=== PATIENT | female | born 1985 | race Caucasian/White ===

== ENCOUNTER 2018-02-05 06:23 | Inpatient (IN) | payer OTHER ==
[2018-02-05] MEDS ORDERED: ELECTROLYTE-148 SOLN 500 ML IV ONE (07:19)
[2018-02-05] MEDS ORDERED: CITRIC ACID/SODIUM CITRATE 30 ML UNIT-DOSE CUP PO ONE (07:19)
[2018-02-05 07:28] VITALS: BMI 37.2
[2018-02-05] MEDS ORDERED: ELECTROLYTE-148 SOLN 1,000 ML IV SCH (07:30)
--- NOTE | 2018-02-05 08:15 | HP ---
Past Medical History - Primary Care Physician PCP:: Louise King - Admission Chief Complaint: 32 yrs , 39.1 weeks, previous c/s x3 , requests for repeat c/s & BTL History of Present Illness: PNC at [address] [place] [address] 07/18/17 : A POS, Hbsag neg, Rpr nr, Rubella pos, Gbs neg, Rpr nr, Hiv neg , 1 hr Gtt normal -128, gc/ct neg , Quantiferon : indetermine ( 10/24/17) NT screen risk for trisomy -21 (1:548), AFP & Materna T21 neg Growth sono were normal last sono 234.6 weeks asael 16.0, efw 46%tile 5'0", BPP8/, fundal placenta Treated for urine c/s > 100,000 growth with macrobid 06/2017 Tdap & flu vaccine taken in 11/26/17 History Source: Patient - Past Medical History SATELLITE INSTALLER: No: CVA, Migraine, Seizure Cardiovascular: No: HTN Pulmonary: No: Asthma Gastrointestinal: Yes: Hemorrhoids Renal/: Yes: UTI ...: 4 ...Para: 3 ...Term: 3 ...: 0 ...Spon : 0 ...Induced : 0 ...Multiple Gestation: 0 ...LMP: 05/08/17 ... Weeks Gestation by Dates: 40.0 ...EDC by Dates: 02/05/18 ...EDC by Sono: 02/11/18 (39.1 weeks ) Additional OB History: G1 07/12/2002 primary c/setion 6'8" [place]. G2 2011 repeat c/s 7'.0" [facility]. G3 08/16/2016 repeat c/s 6'15" [facility] Psych: No: Addictions, Anxiety, Bipolar, Depression Musculoskeletal: No: Bursitis Rheumatology: No: Fibromyalgia ENT: No: Allergic Rhinitis Endocrine: No: Duncan's Disease Dermatology: No: Basal Cell, Cellulitis, Eczema, Melanoma - Past Surgical History Past Surgical History: Yes: (06/2002, 04/2012, 07/2016) Hx Myomectomy: No Hx Transabdominal Cerclage: No - Smoking History Smoking history: Never smoked Have you smoked in the past 12 months: No Aproximately how many cigarettes per day: 0 - Alcohol/Substance Use Hx Alcohol Use: No History of Substance Use: reports: None Home Medications - Allergies Allergies/Adverse Reactions: Allergies Allergy/AdvReac Type Severity Reaction Status Date / Time No Known Allergies Allergy Verified 02/03/18 11:45 - Home Medications Home Medications: Ambulatory Orders Vit,Calc76/Iron/Folic [Pnv 29-1 Tablet] 1 each PO DAILY 08/21/16 Physical Exam - Maternity Vital Signs: Vital Signs Temperature 98.2 F 02/05/18 06:23 Pulse Rate 89 02/05/18 06:23 Respiratory Rate 18 02/05/18 06:23 Blood Pressure 112/69 02/05/18 06:23 O2 Sat by Pulse Oximetry (%) Selected Entries 02/05/18 06:23 Weight 197 lb Constitutional: Yes: Well Nourished, Obese Eyes: Yes: WNL HENT: Yes: WNL Neck: Yes: WNL Cardiovascular: Yes: WNL Lungs: Clear to auscultation Breast(s): Yes: WNL - Abdominal Exam/OB Fundal Height: 40 Number of Fetuses: Single Presentation: Vertex Contractions: No Monitor Mode: External Heart Rate (range): 140 Heart Rate Location: Midline Category: I Accelerations: Uniform Decelerations: None - Vaginal Exam/OB Vaginal Bleediing: No Speculum Exam: No Dilatation (cm): close Effacement (%): unefface Amniotic Membrane Status: Intact Presentation: Vertex/Position Station: -3 - Physical Exam Musculoskeletal: Yes: WNL Extremities: Yes: WNL. No: Calf Tenderness Edema: Yes Edema: LLE: 1+, RLE: 1+ Integumentary: Yes: Incision (suprapubic midline & pfannensteil scar) Deep Tendon Reflex Grade: Normal +2 ...Motor Strength: WNL Psychiatric: Yes: WNL, Alert, Oriented - Labs Lab Results: Laboratory Tests 01/29/16 02/03/18 02/03/18 01:30 10:48 10:48 WBC 8.9 RBC 4.12 Hgb 12.9 D Hct 37.7 D RDW 14.2 Neutrophils % 77.3 Lymphocytes % 15.6 Monocytes % 6.3 Eosinophils % 0.4 Basophils % 0.4 PT with INR INR Sodium Potassium Chloride Carbon Dioxide BUN Creatinine Calcium Total Bilirubin AST ALT Total Protein Albumin Urine Glucose (UA) Negative Urine Ketones Trace H Urine Nitrite Negative Ur Leukocyte Esterase Negative Urine RBC 6 Urine WBC 22 Ur Epithelial Cells Many 02/03/18 02/03/18 10:48 10:48 WBC RBC Hgb Hct RDW Neutrophils % Lymphocytes % Monocytes % Eosinophils % Basophils % PT with INR 10.50 INR 0.93 Sodium 139 Potassium 3.7 Chloride 106 Carbon Dioxide 21 BUN 8 Creatinine 0.3 L Calcium 8.1 L Total Bilirubin 0.4 AST 24 ALT 40 Total Protein 6.9 Albumin 2.9 L Urine Glucose (UA) Urine Ketones Urine Nitrite Ur Leukocyte Esterase Urine RBC Urine WBC Ur Epithelial Cells Hemorrhage Risk Assessment - Risk Factors Medium Risk Factors: Yes: Prior , uterine surgery,or multiple laparotomies Risk Score: 1 Risk Level: Medium Risk Problem List - Problems (1) 39 weeks gestation of Code(s): Z3A.39 - 39 WEEKS GESTATION OF (2) Previous section Code(s): Z98.891 - HISTORY OF UTERINE SCAR FROM PREVIOUS SURGERY (3) Multiparity Code(s): Z64.1 - PROBLEMS RELATED TO MULTIPARITY (4) Obesity (BMI 35.0-39.9 without comorbidity) Code(s): E66.9 - OBESITY, UNSPECIFIED Assessment/Plan 32 yrs , previous c/sx3, obesity, gbs neg , for repeat c/s & BTL
[2018-02-05] MEDS ORDERED: morphine SULFATE/Preservative Free 0.5 MG/ML (1cc Syringe) ONE (08:23)
[2018-02-05] MEDS ORDERED: PHENYLEPHRINE HCL 10 MG/1 ML SINGLE DOSE VIAL ONE (08:23)
[2018-02-05] MEDS ORDERED: EPINEPHrine 1:10,000 (P-F SYR) 1 MG/10 ML DISP.SYRIN ONE (08:23)
[2018-02-05] MEDS ORDERED: ONDANSETRON 4 MG/2 ML VIAL IVPUSH PRN (08:47)
[2018-02-05] MEDS ORDERED: OXYTOCIN 20 UNITS in 0.9% NS 20 UNIT/1,000 ML INFUS.BAG IV ONE ×2 (09:25→10:57)
[2018-02-05] MEDS ORDERED: SENNOSIDES/DOCUSATE COMBO (SENNA PLUS) TABLET (UD) PO PRN (09:48)
[2018-02-05] MEDS ORDERED: IBUPROFEN 800 MG/8 ML IJ IVPB PRN (09:48)
[2018-02-05] MEDS ORDERED: METHYLERGONOVINE MALEATE 0.2 MG/1 ML AMP IM PRN (09:48)
[2018-02-05] MEDS ORDERED: OXYTOCIN 20 UNITS in 0.9% NS 20 UNIT/1,000 ML INFUS.BAG IV SCH (10:00)
--- NOTE | 2018-02-05 10:08 | PN ---
Delivery - Delivery Section: Repeat, Low Flap Transverse (BTL) Type of Anesthesia: Spinal EBL (cc): 600 (shelton urine output 250 ml christina color ) Delivery, Single - Stages of Labor Date of Delivery: 02/05/18 Time of Delivery: 08:54 Time Placenta Delivered: 08:56 Placenta: Yes: Manual Removal, Uterine Exploration - Condition of Plant Engineering Manager/Principal Security Architect Present: Yes Name: Tere Ramirez Gender: Female Weight: 7 lb 3 oz Position: Left, OT Total Hours ROM (Hrs/Mins): 2 min - 1 Minute Total Score: 9 5 Minutes Total Score: 9 - [place] Feeding Plan Initial Plan: Elected not to breastfeed exclusively throughout hospitalization Remarks - Remarks Remarks: 32 yrs , 39.1 weeks , pnc at [address] [place] [address] . Pt obese. GBS neg Indication : 39 weeks, previous c/sx3, requests for voluntory sterlization Intrapartum course uneventful Iv ancef 1 gm ivpb intraop given
--- NOTE | 2018-02-05 10:14 | OP ---
Operative Note - Note: Operative Date: 02/05/18 Operation: 39 weeks, previousc/section x3, multiparity, voluntory sterlization Findings: Baby Girl 8.54 AM , 9/9, wt 7'3" , Ht 19" Both tubes & ovaries normal both tubes [id number] & cut by modified [place] technique Dr Ramirez present in the OR Surgeon: Louise King Drilling And Production Superintendent: Marshall Scherer Anesthesiologist/BLACKJACK SUPERVISOR: Edison Petersen Anesthesia: Spinal Specimens Removed: placenta. portion of Rt tube. portion of Left tube Estimated Blood Loss (mls): 600 Drains, Volume Out (mls): 250 (christina color shelton out put ) Fluid Volume Replaced (mls): 1,000 (iv ancef 1 gm prior to incision was given ) Operative Report Dictated: Yes
[2018-02-05] MEDS ORDERED: BUPIVACAINE 0.75% IN DEXTROSE/PF 2ML AMPULE NR ONE (11:37)
--- NOTE | 2018-02-05 13:38 | OP ---
DATE OF OPERATION: 02/05/2018 PREOPERATIVE DIAGNOSIS: At 39 weeks, previous section x3, multiparity, voluntary sterilization, obesity. OPERATION: Repeat low-flap transverse section and bilateral tubal ligation. SURGEON: Louise King MD COMMERCIAL REAL ESTATE ASSOCIATE SURGEON: SHORTY Olguin ANESTHESIOLOGIST: Edison Petersen MD AIRCRAFT ASSEMBLER: Tere Ramirez MD ANESTHESIA: Spinal. FINDINGS: This is a 32-year-old, 3, para 3-0-0-3, previous section, not in labor, and at 39-1/7 weeks in gestation. The patient is obese. PROCEDURE: The patient was taken to the operating room table. Soto catheter was placed. Abdomen was shaved, prepped. Spinal anesthesia was given. She was placed in supine position. Abdomen was painted and draped in the usual manner, and then Pfannenstiel incision was made. The skin, subcutaneous tissue, anterior rectus sheath was incised transversely. Bleeding points were clamped and cauterized. Rectus muscle was from the rectus sheath. Parietal peritoneum was opened vertically. Lower flap parietal peritoneum was identified and there was some flimsy adhesion that was incised and the bladder was pushed down, then lower uterine segment was incised transversely, and the baby girl was delivered at 8:54 a.m. from LOT position. was 9 and 9 and the weight was 7 pounds 3 ounces, and height was 19 inches. Cord was clamped, cut, cord blood was collected. The baby was handed over to the technical communicator. Then placenta was removed completely with the membranes. Then the uterine cavity was cleaned. Uterine incision was closed in 2 layers, first layer was a continuous locking with a Biosyn 0 suture, second layer was a continuous intermittent locking and vertical mattress sutures.. Hemostasis was checked. Both ovaries were normal. First the right tube, then the left tube, the tubal ligation was done. In the lateral ampullary region on the right side, the tubal segment was doubly ligated with 2-0 plain catgut and the portion of the tube above the ligature was cut and sent for pathology examination, then the endosalpinx was cauterized. On the left side, in the similar procedure was done. The tube segment, at isthmic ampullary junction was ligated twice with plain 2 -0 catgut and the portion of the tube above the ligature was cut and sent for pathology examination, and the endosalpinx was cauterized. Hemostasis was checked. Irrigation was done. The sponge, instrument, needle count was correct. Then the closure of the abdomen was done. Parietal peritoneum was closed with a Vicryl 0 suture. The muscles were approximated with a Vicryl 0 suture and interrupted sutures were taken. Hemostasis was checked underneath the rectus sheath flaps. Anterior rectus sheath was closed with a Vicryl 0 continuous suture. Hemostasis was checked in subcutaneous tissue. Subcutaneous tissue was approximated with a Vicryl 0 interrupted suture. Skin was approximated with karla. Patient tolerated procedure well. Pressure dressing was given. Blood clots were removed from the vagina and then she was transferred to the recovery room in stable condition. Estimated blood loss was 600 mL. Urine output was 250 mL and it was christina color.She received 1 gm of IV Ampicillin prior to incision .. Sveta [id number] MTDD
[2018-02-05] MEDS: CEFAZOLIN 1 GM/D5W 1 GM/50 ML BAG IVPB SCH (16:35)
[2018-02-06] MEDS: ACETAMINOPHEN 325 MG TABLET (FP) PO PRN ×3 (01:34→17:53)
[2018-02-06] MEDS: CEFAZOLIN 1 GM/D5W 1 GM/50 ML BAG IVPB SCH ×2 (01:34→08:08)
[2018-02-06] MEDS: IBUPROFEN 600 MG TABLET (FP) PO PRN ×3 (01:34→17:54)
[2018-02-06 07:28] LABS: BASO % 0.3 % (0-2.0); EOS % 0.2 % (0-4.5); HEMATOCRIT 33.5 % (32.4-45.2); HEMOGLOBIN 11.5 GM/dL (10.7-15.3); LYMPH % 15.9 % (8-40); MCH 31.2 pg (25.7-33.7); MCHC 34.2 g/dl (32.0-36.0); MEAN CELL VOLUME 91.2 fl (80-96); MEAN PLT VOLUME 10.7 fl (7.5-11.1); MONO % 6.6 % (3.8-10.2); PLATELET COUNT 147 K/MM3 (134-434); RBC 3.67 M/mm3 (3.60-5.2); RDW 14.1 % (11.6-15.6); WHITE BLOOD COUNT 8.5 K/mm3 (4.0-10.0)
[2018-02-06] MEDS ORDERED: oxyCODONE HCL 5 MG TABLET PO PRN ×2 (08:00)
[2018-02-06] MEDS: SIMETHICONE 80 MG TAB.CHEW (FP) PO PRN ×2 (08:11→17:53)
--- NOTE | 2018-02-06 09:12 | PN ---
Progress Note (short form) - Note Progress Note: Pot op day#1.S/P C section under spinal anesthesia with duramorph uneventful.Patirnt stable and does not c/o pain.No any anesthesia related problem.Patient dc from the anesthesia care.
[2018-02-06] MEDS: ENOXAPARIN NA (PORCINE) 40 MG/0.4 ML DISP.SYRIN SQ SCH (09:19)
[2018-02-06] MEDS: PRENATAL VITAMINS W/ FOLIC ACID TABLET (FP) PO SCH (09:24)
--- NOTE | 2018-02-06 09:28 | PN ---
Post Progress Note - Subjective Subjective: 32 yo Para 4 status post repeat , seen and evaluated. She's out of bed to chair. Doing well. Post Day: 1 Type of Delivery: Repeat C/S Vital Signs: Vital Signs Temperature 98.5 F 02/06/18 08:47 Pulse Rate 75 02/06/18 08:47 Respiratory Rate 20 02/06/18 08:47 Blood Pressure 107/62 02/06/18 08:47 O2 Sat by Pulse Oximetry (%) 100 02/05/18 10:40 Breast Exam: Yes: Soft Uterus: Yes: Fundus Firm Incision: Yes: Dressing dry and intact Abdomen/GI: Yes: Abdomen soft, Tolerating PO Lochia: Yes: Rubra Lochia, amount: Small Extremities: Yes: Calves non-tender Perineum: Yes: Intact Activity: Other (Out of bed to chair) - Labs Labs: CBC WBC 8.5 K/mm3 (4.0-10.0) 02/06/18 06:15 RBC 3.67 M/mm3 (3.60-5.2) 02/06/18 06:15 Hgb 11.5 GM/dL (10.7-15.3) D 02/06/18 06:15 Hct 33.5 % (32.4-45.2) 02/06/18 06:15 MCV 91.2 fl (80-96) 02/06/18 06:15 MCH 31.2 pg (25.7-33.7) 02/06/18 06:15 MCHC 34.2 g/dl (32.0-36.0) 02/06/18 06:15 RDW 14.1 % (11.6-15.6) 02/06/18 06:15 Plt Count 147 K/MM3 (134-434) 02/06/18 06:15 MPV 10.7 fl (7.5-11.1) 02/06/18 06:15 Neutrophils % 77.0 % (42.8-82.8) 02/06/18 06:15 Lymphocytes % 15.9 % (8-40) 02/06/18 06:15 Monocytes % 6.6 % (3.8-10.2) 02/06/18 06:15 Eosinophils % 0.2 % (0-4.5) 02/06/18 06:15 Basophils % 0.3 % (0-2.0) 02/06/18 06:15 Problem List - Problems (1) Status post repeat low transverse section Code(s): Z98.891 - HISTORY OF UTERINE SCAR FROM PREVIOUS SURGERY Assessment/Plan Status post repeat Stable Analgesia as needed Continue routine care
[2018-02-06] MEDS ORDERED: BISACODYL 10 MG SUPP.RECT RC PRN (09:48)
--- NOTE | 2018-02-06 11:32 | DS ---
Physical Exam-ACTIVITIES CONCIERGE Vital Signs: Vital Signs Temperature 98.5 F 02/06/18 08:47 Pulse Rate 75 02/06/18 08:47 Respiratory Rate 20 02/06/18 08:47 Blood Pressure 107/62 02/06/18 08:47 O2 Sat by Pulse Oximetry (%) 100 02/05/18 10:40 Selected Entries 02/08/18 08:40 Temperature 99 F Pulse Rate 62 Blood Pressure 112/72 Constitutional: Yes: Well Nourished, Obese Eyes: Yes: WNL HENT: Yes: WNL Neck: Yes: WNL Cardiovascular: Yes: WNL Respiratory: Yes: WNL Gastrointestinal: Yes: WNL, Normal Bowel Sounds, Soft, Abdomen, Obese, Other ( tolerating reg diet). No: Distention Renal/: Yes: WNL ....Post : Yes: Uterus firm, Uterus non-tender, Moderate lochia rubra Breast(s): Yes: WNL (BF) Musculoskeletal: Yes: WNL Extremities: Yes: WNL. No: Calf Tenderness Edema: Yes Edema: LLE: Trace, RLE: Trace Wound/Incision: Yes: Clean/Dry, Well Approximated, Karla Intact. No: Reddened , Bleeding, Excoriated Neurological: Yes: WNL, Alert, Oriented ...Motor Strength: WNL Psychiatric: Yes: WNL Labs: CBC, BMP 02/06/18 06:15 Laboratory Tests 02/08/18 07:32 WBC 7.8 Hgb 11.5 Plt Count 166 Neutrophils % 71.4 Lymphocytes % 22.0 D Delivery - Delivery Section: Repeat, Low Flap Transverse (BTL) Type of Anesthesia: Spinal Episiotomy/Laceration: None EBL (cc): 600 Delivery, Single - Stages of Labor Date of Delivery: 02/05/18 Time of Delivery: 08:54 Time Placenta Delivered: 08:56 Placenta: Yes: Manual Removal, Uterine Exploration - Condition of Infant Shank Tapper/Leave Manager Present: Yes Name: Tere Ramirez Infant Gender: Female Weight: 7 lb 3 oz Position: Left, OT Total Hours ROM (Hrs/Mins): 2 min - 1 Minute Total Score: 9 5 Minutes Total Score: 9 - [place] Feeding Plan Initial Plan: Elected not to breastfeed exclusively throughout hospitalization Remarks - Remarks Remarks: 32 yrs , 39.1 weeks , pnc at 2, [facility] . Pt obese. GBS neg Indication : 39 weeks, previous c/sx3, requests for voluntory sterlization Intrapartum course uneventful Iv ancef 1 gm ivpb intraop given . post op course uneventful discharge 02/08/18. pt will rtc for karla removal. Discharge Summary Reason For Visit: SCHEDULED Current Active Problems 39 weeks gestation of (Acute) delivery, delivered, current hospitalization (Acute) Multiparity (Acute) Obesity (BMI 35.0-39.9 without comorbidity) (Acute) Previous section (Acute) Status post repeat low transverse section (Acute) Condition: Good - Instructions Diet, Activity, Other Instructions: Post Instructions DIET: Continue good diet high in protein, calcium, and iron rich foods. Drink at least eight (8) glasses of water daily in addition to other fluids. ct Regular diet MEDICATIONS: Continue vitamins and iron as previously directed. Motrin and Tylenol may be taken for minor discomfort. ACTIVITY: Mild to moderate exercise may be started in two (2) weeks. Take frequent rest periods. Resume normal activity after six (6) week check up. WOUND CARE OF OPERATIVE SITE: Continue use of perineal bottle until vaginal discharge stops. Keep area clean. Shower daily. Keep abdominal wound dry. Report any drainage or redness to physician. Tub baths, tampons and douches are not permitted for [address] Breast feeding & or Bottle feeding BREAST CARE: (For those that are not breast feeding): If engorgement occurs: Wear tight fitting bra. Take Tylenol or Motrin for pain. Apply cold packs (ice in bags to each breast ) FAMILY PLANNING: There are many control alternatives to pursue and they should be discussed at your first office visit. You may resume sexual activity after your six (6) week check up. (Remember, breast feeding is not a contraceptive) NEXT PHYSICIAN APPOINTMENT: Be certain to call for a one (1 ) week appointment, unless otherwise directed. RTC on 02/11/18Saturday for Karla removal Call Clinic or got to Emergency Dept if you have any of the following: Heavy vaginal bleeding Painful urination Leg pain Unusual odor noted to vaginal bleeding High fever Red streaking noted on breast call [facility] for appointment. [phone]. Referrals: Louise King MD [Staff Physician] - Disposition: HOME - Home Medications Comprehensive Discharge Medication List: Ambulatory Orders RX: Vit,Calc76/Iron/Folic [Pnv 29-1 Tablet] 1 each PO DAILY 08/21/16 RX: Acetaminophen [Tylenol .Regular Strength -] 500 mg PO Q4H PRN #30 tablet RX: Ferrous Sulfate [Feosol] 325 mg PO DAILY #30 tab 02/06/18 RX: Ibuprofen [Motrin -] 600 mg PO Q4H PRN #30 tablet 02/06/18 RX: Vitamins ([facility]) - 1 tab PO DAILY #30 tablet 02/06/18
[2018-02-06] MEDS: FERROUS SO4 325 MG TABLET (FP) PO SCH ×2 (20:50→23:23)
--- NOTE | 2018-02-07 07:07 | PN ---
Progress Note (short form) - Note Progress Note: pod 2 doing well, passing gas , ambulating CBC, BMP 02/06/18 06:15 Last Vital Signs Temp Pulse Resp BP Pulse Ox 98.6 F 76 20 110/67 100 02/06/18 21:00 02/06/18 21:00 02/06/18 21:00 02/06/18 21:00 02/05/18 10:40 abdomen soft, no distension, no cva uterus firm, non tender lochia mild no calf tenderness plan ambulate, advance diet, pain management
[2018-02-07] MEDS: ENOXAPARIN NA (PORCINE) 40 MG/0.4 ML DISP.SYRIN SQ SCH (09:12)
[2018-02-07] MEDS: FERROUS SO4 325 MG TABLET (FP) PO SCH ×2 (09:12→21:55)
[2018-02-07] MEDS: PRENATAL VITAMINS W/ FOLIC ACID TABLET (FP) PO SCH (09:12)
--- NOTE | 2018-02-08 07:02 | PN ---
Post Progress Note - Subjective Subjective: 32 yo Para 4 status post repeat , seen and evaluated. Doing well. She requests D/C home today. Post Day: 3 Type of Delivery: Vital Signs: Vital Signs Temperature 98.7 F 02/07/18 22:00 Pulse Rate 68 02/07/18 22:00 Respiratory Rate 18 02/07/18 22:00 Blood Pressure 112/66 02/07/18 22:00 O2 Sat by Pulse Oximetry (%) 100 02/05/18 10:40 Breast Exam: Yes: Soft Uterus: Yes: Fundus Firm Incision: Yes: [place] intact Abdomen/GI: Yes: Abdomen soft, Tolerating PO Lochia: Yes: Rubra Lochia, amount: Small Extremities: Yes: Calves non-tender Perineum: Yes: Intact Activity: Ambulating - Labs Labs: CBC WBC 8.5 K/mm3 (4.0-10.0) 02/06/18 06:15 RBC 3.67 M/mm3 (3.60-5.2) 02/06/18 06:15 Hgb 11.5 GM/dL (10.7-15.3) D 02/06/18 06:15 Hct 33.5 % (32.4-45.2) 02/06/18 06:15 MCV 91.2 fl (80-96) 02/06/18 06:15 MCH 31.2 pg (25.7-33.7) 02/06/18 06:15 MCHC 34.2 g/dl (32.0-36.0) 02/06/18 06:15 RDW 14.1 % (11.6-15.6) 02/06/18 06:15 Plt Count 147 K/MM3 (134-434) 02/06/18 06:15 MPV 10.7 fl (7.5-11.1) 02/06/18 06:15 Neutrophils % 77.0 % (42.8-82.8) 02/06/18 06:15 Lymphocytes % 15.9 % (8-40) 02/06/18 06:15 Monocytes % 6.6 % (3.8-10.2) 02/06/18 06:15 Eosinophils % 0.2 % (0-4.5) 02/06/18 06:15 Basophils % 0.3 % (0-2.0) 02/06/18 06:15 Problem List - Problems (1) Status post repeat low transverse section Code(s): Z98.891 - HISTORY OF UTERINE SCAR FROM PREVIOUS SURGERY Assessment/Plan Status Stable D/C home F/U in clinic in one week
[2018-02-08 08:25] LABS: BASO % 0.2 % (0-2.0); EOS % 0.9 % (0-4.5); HEMOGLOBIN 11.5 GM/dL (10.7-15.3); MCH 31.3 pg (25.7-33.7); MCHC 33.9 g/dl (32.0-36.0); MEAN CELL VOLUME 92.4 fl (80-96); MEAN PLT VOLUME 10.7 fl (7.5-11.1); MONO % 5.5 % (3.8-10.2); NEUT % 71.4 % (42.8-82.8); PLATELET COUNT 166 K/MM3 (134-434); RBC 3.68 M/mm3 (3.60-5.2); RDW 14.4 % (11.6-15.6); WHITE BLOOD COUNT 7.8 K/mm3 (4.0-10.0)
[2018-02-08 08:42] VITALS: BP 112/72; PULSE 62; TEMP 99
[2018-02-08] MEDS: ACETAMINOPHEN 325 MG TABLET (FP) PO PRN (09:13)
[2018-02-08] MEDS: ENOXAPARIN NA (PORCINE) 40 MG/0.4 ML DISP.SYRIN SQ SCH (09:13)
[2018-02-08] MEDS: FERROUS SO4 325 MG TABLET (FP) PO SCH (09:13)
[2018-02-08] MEDS: PRENATAL VITAMINS W/ FOLIC ACID TABLET (FP) PO SCH (09:13)
[2018-02-08] MEDS: IBUPROFEN 600 MG TABLET (FP) PO PRN (09:14)
--- NOTE | 2018-02-11 16:33 | PATH ---
Surgical Pathology Report Patient Name: BARTOLOME STEVENS [facility]. Rec. #: [id number] /Age/Gender: 1985 (Age: 32) / F Account: [id number] Location: [facility] OBS/FREIGHT FLAGMAN Taken: 02/05/2018 Received: 02/06/2018 Reported: 02/11/2018 Physicians: Louise King M.D. Specimen(s) Received A: PLACENTA B: LEFT FALLOPIAN TUBE C: RIGHT FALLOPIAN TUBE Clinical History 39.1 weeks' gestation, repeat , bilateral tubal ligation Final Diagnosis A. PLACENTA, SECTION: 479 g THIRD TRIMESTER PLACENTA WITH TRIVASCULAR UMBILICAL CORD AND UNREMARKABLE PLACENTAL MEMBRANES. B. FALLOPIAN TUBE, LEFT, PARTIAL EXCISION: FULL LUMINAL PORTION OF UNREMARKABLE FALLOPIAN TUBE. C. FALLOPIAN TUBE, RIGHT, PARTIAL EXCISION: FULL LUMINAL PORTION OF UNREMARKABLE FALLOPIAN TUBE. Electronically Signed Rosalind Shrestha M.D. Gross Description A. The specimen is received fresh labeled placenta and is a 479 gram, 17.5 x 14.5 x 3.2 cm. placenta with attached membranes and umbilical cord. The attached membranes are mendez, translucent with focal opacities and insert marginally. The umbilical cord measures 35 cm. in length and averages 1.3 cm. in diameter. The cord inserts eccentrically, 4.5 cm. to the nearest margin. No true knots or strictures are identified. Cut surface of the umbilical cord reveals 3 vessels. The surface is pratt-blue with minimal fibrin deposition and appropriate caliber vessels. The maternal surface is red-brown with focal defects. Sectioning reveals red-brown, spongy parenchyma. No lesions are identified. Wood Floor Refinisher sections are submitted in three cassettes as follows: 1- membrane rolls and umbilical cord; 2-3- full thickness sections of placenta. B. Received in formalin labeled "left tube," is a 1.0 cm in length portion of fallopian tube. No fimbria are present. The outer surface is mendez-ovalle and smooth. Wood Floor Refinisher sections are submitted in one cassette. C. Received in formalin labeled "right tube," is a 2.2 cm in length portion of fallopian tube. No fimbria are present. The outer surface is mendez-ovalle and smooth. Sectioning reveals unremarkable lumen. Wood Floor Refinisher sections are submitted in one cassette. 02/10/2018 [place]02/10/2018
== END 2018-02-08 12:00 | disposition home or self-care (01) | DRG 540 ==
LOC: JLDR 06:23 → J3W 11:45
PROVIDERS: ADMIT Obstetrics & Gynecology; ATTEND Obstetrics & Gynecology
PROC: 10D00Z1 Extraction of Products of Conception, Low, Open Approach (ICD-10-PCS; principal; 2018-02-05)
PROC: 0UL70ZZ Occlusion of Bilateral Fallopian Tubes, Open Approach (ICD-10-PCS; 2018-02-05)
DX: O34.219 Maternal care for unspecified type scar from previous cesarean delivery (principal); O99.214 Obesity complicating childbirth; E66.8 Other obesity; Z68.37 Body mass index [BMI] 37.0-37.9, adult; Z3A.39 39 weeks gestation of pregnancy; Z37.0 Single live birth; Z30.2 Encounter for sterilization
CPT/HCPCS: 36415; 71046-TC-FY; 85025; 88302-TC; 88307-TC; 94010